=== PATIENT | female | born 1955 | race Caucasian/White ===

== ENCOUNTER 2019-12-24 08:57 | Outpatient (CLI) | payer BC, SELFPAY ==
--- NOTE | ~2019-12-24 | MM_ITS ---
EXAMINATION: MM screening katie BI w sandhya HISTORY: Screening TECHNIQUE: Craniocaudal and mediolateral oblique 3-D tomosynthesis images were obtained and synthetic 2-D images were generated. CAD analysis was submitted and interpreted. COMPARISON: Comparison to multiple prior studies sequentially, with oldest reviewed study dated 01/10. BREAST PARENCHYMAL COMPOSITION: There are scattered areas of fibroglandular density. FINDINGS: There is no evidence of suspicious mass, calcification, or architectural distortion to sugg est malignancy in either breast. There has been no suspicious interval change. IMPRESSION: 1. No mammographic evidence of malignancy. 2. Recommend routine screening mammography in one year. BI-RADS Category 1: Negative Reviewed, dictated and finalized at location A.
== END 2019-12-24 08:58 | disposition home or self-care (01) ==
LOC: ANHIMG 09:03
PROVIDERS: PCP Family Medicine Sports Medicine; Visit Provider Obstetrics & Gynecology
DX: Z12.31 Encounter for screening mammogram for malignant neoplasm of breast (principal)
CPT/HCPCS: 77063; 77067

== ENCOUNTER 2021-09-13 07:30 | Outpatient (CLI) | payer OTHER, SELFPAY ==
[2021-09-13 07:49] LABS: Basophils Percent Auto 0.5 % (0.2-1.2); Eosinophils Absolute Auto 0.1 K/mm3 (0-0.3); Eosinophils Percent Auto 2.8 % (0-4.4); Hematocrit 41.7 % (37.0-47.0); Hemoglobin 13.7 g/dL (12.0-15.0); Immature Granulocyte Absolute 0.01 K/mm3 (0.00-0.031); Immature Granulocyte Percent A 0.3 % (0-0.5); Lymphocytes Percent Auto 28.5 % (18.3-44.2); Mean Corpuscular HGB Conc 32.9 g/dl (32-36); Mean Corpuscular Hemoglobin 29.3 pg (26-34); Mean Corpuscular Volume 89.1 fl (80-100); Mean Platelet Volume 9.2 fl (7.4-10.4); Monocytes Absolute Auto 0.3 K/mm3 (0.1-0.6); Monocytes Percent Auto 6.5 % (2.6-8.5); Neutrophils Absolute Auto 2.4 K/mm3 (1.3-6.7); Neutrophils Percent Auto 61.4 % (45.5-73.1); Platelet Count Result 213 k/mm3 (150-375); Red Blood Count 4.68 M/mm3 (4.2-5.4); Red Cell Distribution Width 13.2 % (11.5-14.5); White Blood Count 3.9 K/mm3 (4.5-10.0)
[2021-09-13 08:13] LABS: Alanine Aminotransferase 29 U/L (6-35); Albumin Level 4.6 g/dL (3.5-5.1); Alkaline Phosphatase 54 U/L (38-126); Anion Gap 6 mmol/L (8-16); Aspartate Amino Transferase 38 U/L (14-36); Bilirubin,Total 0.6 mg/dL (0.2-1.3); Blood Urea Nitrogen 10 mg/dL (7-17); Calcium 9.2 mg/dL (8.4-10.2); Carbon Dioxide 28 mmol/L (22-30); Chloride 104 mmol/L (98-107); Cholesterol 236 mg/dL (0-200); Estimated Glomerular Filt Rate > 60; Glucose 91 mg/dL (65-110); HDL Direct 47 mg/dL; Potassium 4.4 mmol/L (3.4-5.0); Sodium 138 mmol/L (137-145); Triglycerides 163 mg/dL (<150)
[2021-09-13 08:24] LABS: LDL Cholesterol Direct 136 mg/dL
== END 2021-09-13 07:31 | disposition home or self-care (01) ==
PROVIDERS: PCP Family Medicine Sports Medicine; Visit Provider Obstetrics & Gynecology
DX: Z00.00 Encounter for general adult medical examination without abnormal findings (principal)
CPT/HCPCS: 36415; 80053; 80061; 82306; 83036; 85025

== ENCOUNTER 2022-06-18 07:41 | Outpatient (CLI) | payer MEDICARE, OTHER, SELFPAY ==
--- NOTE | ~2022-06-18 | MM_ITS ---
EXAMINATION: MM screening katie BI w sandhya HISTORY: Screening mammogram TECHNIQUE: Craniocaudal and mediolateral oblique 3-D tomosynthesis images were obtained and synthetic 2-D images were generated. CAD analysis was submitted and interpreted. COMPARISON: 12/24/2019, 01/10/2017 bilateral screening mammogram examinations BREAST PARENCHYMAL COMPOSITION: There are scattered areas of fibroglandular density. FINDINGS: There is no evidence of suspicious mass, calcification, or architectural distortion to sugg est malignancy in either breast. There has been no suspicious interval change. IMPRESSION: 1. No mammographic evidence of malignancy. 2. Recommend routine screening mammography in one year. 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
== END 2022-06-18 07:42 | disposition home or self-care (01) ==
LOC: ANHIMG 07:42
PROVIDERS: PCP Family Medicine Sports Medicine; Visit Provider Obstetrics & Gynecology
DX: Z12.31 Encounter for screening mammogram for malignant neoplasm of breast (principal)
CPT/HCPCS: 77063; 77067

== ENCOUNTER → 2022-09-13 10:05 | Outpatient (CLI) | payer MEDICARE, OTHER, SELFPAY ==
--- NOTE | ~2022-09-13 | MR_ITS ---
MRI of the left hip Clinical history: Pain Technique: Coronal T1-weighted, T2-weighted, and proton-density fat-sat images, and axial T1-weighted and proton-density fat-sat images were acquired through the pelvis. Coronal T2-weighted images and c oronal, axial, and sagittal proton-density fat-sat images were acquired through the left hip. Findings: There is no fracture, avascular necrosis, or transient osteoporosis of either hip. Bone mar row signals in the proximal femora and visualized pelvic bones are unremarkable. There are minimal de generative changes of the bilateral hip joints. No joint effusion evident. No acetabular labral tear evident. Visualized musculature about the pelvis and left hip is unremarkable. No muscle atrophy or edema iden tified. Visualized tendons are intact. No soft tissue mass or fluid collection identified. No evidenc e for bursitis. IMPRESSION: Minimal degenerative changes of both hip joints, otherwise unremarkable exam. Reviewed, dictated and finalized at location .
== END ==
PROVIDERS: PCP Family Medicine Sports Medicine; Visit Provider Orthopaedic Surgery
DX: M25.552 Pain in left hip (principal)
CPT/HCPCS: 73721

== ENCOUNTER 2022-10-01 09:00 | Outpatient (NON) | payer MEDICARE, OTHER, SELFPAY | END 2022-10-01 09:01 | disposition home or self-care (01) | LOC: ANHLAB 10-03 15:28 | PROVIDERS: PCP Family Medicine Sports Medicine; Visit Provider Nurse Practitioner | DX: L73.8 Other specified follicular disorders (principal) | CPT/HCPCS: 88305 ==

== ENCOUNTER → 2023-01-02 09:46 | Outpatient (CLI) | payer MEDICARE, OTHER, SELFPAY ==
--- NOTE | ~2023-01-02 | MR_ITS ---
MRI of the right hip Clinical history: Sprain Technique: Coronal T1-weighted, T2-weighted, and proton-density fat-sat images, and axial T1-weighted and proton-density fat-sat images were acquired through the pelvis. Coronal T2-weighted images and c oronal, axial, and sagittal proton-density fat-sat images were acquired through the right hip. Findings: There is no fracture, avascular necrosis, transient suppresses of either hip. Bone marrow s ignals of the proximal femora and visual is pelvic bones are unremarkable. There is mild to moderate diffuse chondral malacia of the right hip joint. There is minimal chondral malacia the left hip joint . There is moderate right hip joint effusion, nonspecific. No definite right acetabular labral tear s een. Visualized musculature about the pelvis and right hip is unremarkable. No muscle atrophy or edema. Vi sualized tendons are intact. No bursitis. No soft tissue mass or fluid collection. IMPRESSION: Mild degenerative change of the right hip joint, as detailed above. Moderate right hip joint effusion, nonspecific. This may be reactive. Consider joint aspiration as in dicated, especially if there is any clinical concern for septic joint. Reviewed, dictated and finalized at location . IMPRESSION: Mild degenerative change of the right hip joint, as detailed above. Moderate right hip joint effusion, nonspecific. This may be reactive. Consider joint aspiration as indicated, especially if there is any clinical concern for septic joint.
== END ==
PROVIDERS: PCP Family Medicine Sports Medicine; Visit Provider Family Medicine Sports Medicine
DX: S73.191A Other sprain of right hip, initial encounter (principal); X58.XXXA Exposure to other specified factors, initial encounter; M16.11 Unilateral primary osteoarthritis, right hip
CPT/HCPCS: 73721

== ENCOUNTER → 2023-01-22 09:48 | Outpatient (CLI) | payer MEDICARE, OTHER, SELFPAY ==
--- NOTE | ~2023-01-22 | XR_ITS ---
XR hip RT 2V w AP pelvis DATE: 01/22/2023 10:36 INDICATION: Right hip pain TECHNIQUE: AP pelvis. AP and lateral views of right hip. COMPARISON: 01/02/2023 MRI hip FINDINGS: Normal alignment at the pubic symphysis and sacroiliac joints. No pelvic fracture or bone d estruction is detected. Hip joint spaces appear symmetric and relatively preserved. There is mild spurring of the right femoral head consistent with mild osteoarthritis. No right hip fr acture or dislocation, avascular necrosis or bone destruction is detected. IMPRESSION: Mild right hip osteoarthritis Reviewed, dictated and finalized at location L.
== END ==
PROVIDERS: PCP Orthopaedic Surgery; Visit Provider Orthopaedic Surgery
DX: M16.11 Unilateral primary osteoarthritis, right hip (principal)
CPT/HCPCS: 73502

== ENCOUNTER 2023-08-19 10:12 | Outpatient (CLI) | payer MEDICARE, OTHER, SELFPAY ==
--- NOTE | ~2023-08-19 | MR_ITS ---
EXAMINATION: MR lumbar spine wo con DATE: 08/19/2023 10:47 INDICATION: Low back pain. TECHNIQUE: Magnetic resonance imaging (MRI) of the lumbar spine was performed without intravenous con trast. Sequences included sagittal T2-weighted FSE, sagittal T2-weighted FS FSE, sagittal T1-weighted FSE, and axial T2-weighted FSE. COMPARISON: Lumbar spine MRI 05/05/2013 FINDINGS: There is 6 degrees dextrocurvature of the lumbar spine. There are Schmorl's nodes at multip le levels. There is mildly decreased disc height at L3-L4, moderately decreased disc height at L4-L5, and severely decreased disc height at L5-S1. The distal spinal cord signal intensity is normal. The conus medullaris is at L1. The following disc levels are specifically discussed: L1-L2: The disc does not extend beyond the endplate margin. There is moderate right and mild left fac et joint osteoarthritis. There is no neural foraminal stenosis. There is no central canal stenosis. L2-L3: The disc is bulging. There is severe bilateral facet joint osteoarthritis. There is mild bilat eral neural foraminal stenosis. There is mild central canal stenosis. L3-L4: The disc is bulging and has an annular fissure. There is severe bilateral facet joint osteoart hritis. There is mild bilateral neural foraminal stenosis. There is mild central canal stenosis. L4-L5: The disc is bulging and has an annular fissure. There is moderate bilateral facet joint osteoa rthritis. There is moderate right and mild left neural foraminal stenosis. There is mild central paul l stenosis. L5-S1: The disc is bulging and has an annular fissure. There is moderate bilateral facet joint osteoa rthritis. There is mild bilateral neural foraminal stenosis. There is mild central canal stenosis. IMPRESSION: 1. Severe lumbar spondylosis, worsened from 05/05/2013. Reviewed, dictated and finalized at location A.
== END 2023-08-19 10:13 ==
PROVIDERS: PCP Family Medicine Sports Medicine; Visit Provider Family Medicine
DX: M47.896 Other spondylosis, lumbar region (principal)
CPT/HCPCS: 72148

== ENCOUNTER 2025-03-05 09:39 | Outpatient (CLI) | payer MEDICARE, OTHER, SELFPAY ==
--- NOTE | ~2025-03-05 | MR_ITS ---
EXAM/PROCEDURE: MR hip LT wo con HISTORY: M25.552 - Pain in left hip COMPARISON: September 13, 2022 TECHNIQUE: Noncontrast enhanced multiplanar MRI through the left hip and pelvis performed FINDINGS: No fracture subluxation or dislocation. No acute or aggressive bony or soft tissue process seen. Moderately advanced osteoarthritic degenerative changes in the hips, which appear more advanced on the right side with increased spurring on the right side. In the left hip, scattered areas of cartilaginous erosion and joint space narrowing with minimal spurring. No significant effusion. A small degenerative labral tear appears to be present along the anterosuperior margin in the left hip. Extra articular soft tissues appear stable, and within normal limits. IMPRESSION: Moderate osteoarthritic degenerative changes with possible small degenerative labral tear in the anterosuperior margin of the left hip. Reviewed, dictated and finalized at location A. 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
== END 2025-03-05 09:40 | disposition home or self-care (01) ==
LOC: MICIMG 09:40
PROVIDERS: PCP Family Medicine Sports Medicine; Visit Provider Orthopaedic Surgery
DX: M16.12 Unilateral primary osteoarthritis, left hip (principal)
CPT/HCPCS: 73721